=== PATIENT | female | born 1945 | race Caucasian/White ===

== ENCOUNTER 2018-08-28 11:04 | Inpatient (IN) | payer MEDICARE, BC ==
[~2018-08-28] VITALS: Ht 165.1 cm; Wt 94.9 kg
[2018-08-28] MEDS ORDERED: LACTATED RINGERS 1,000 ML IV SCH (12:55)
[2018-08-28] MEDS ORDERED: OXYC-302 PO (12:55)
[2018-08-28] MEDS ORDERED: MELO15TA24 PO (12:55)
[2018-08-28] MEDS ORDERED: LOSA25TA25 PO (12:55)
[2018-08-28] MEDS ORDERED: LEVO137T3 PO (12:55)
[2018-08-28] MEDS ORDERED: AMLO-150 PO (12:55)
[2018-08-28] MEDS ORDERED: ATOR20TA37 PO (12:55)
[2018-08-28 12:56] VITALS: BP 128/66
[2018-08-28 13:48] LABS: BASOPHILS # (AUTO) 0.04 x10^3/uL (0-0.1); BASOPHILS % (AUTO) 0 % (0-1); EOSINOPHILS # (AUTO) 0.04 x10^3/uL (0-0.4); EOSINOPHILS % (AUTO) 0 % (1-7); LYMPHOCYTES # (AUTO) 1.58 x10^3/uL (1-3.4); LYMPHOCYTES % (AUTO) 14 % (22-44); MD NO; MEAN CORPUSCULAR HEMOGLOBIN 29.2 pg (27.0-34.8); MEAN CORPUSCULAR HGB CONC 31.7 g/dL (32.4-35.8); MEAN CORPUSCULAR VOLUME 92.1 fL (80-100); MEAN PLATELET VOLUME 7.9 fL (7.4-10.4); MONOCYTES # (AUTO) 0.91 x10^3/uL (0.2-0.8); MONOCYTES % (AUTO) 8 % (2-9); NEUTROPHILS # (AUTO) 8.91 x10^3/uL (1.8-6.8); NEUTROPHILS % (AUTO) 78 % (42-75); PLATELET COUNT 313 x10^3/uL (130-400); RED BLOOD COUNT 5.26 x10^6/uL (3.82-5.3); RED CELL DISTRIBUTION WIDTH 17.3 % (9.6-15.2)
[2018-08-28 13:54] LABS: INTERNATIONAL NORMALIZED RATIO 1.03 (0.93-1.1); PROTHROMBIN TIME 10.8 Seconds (9.6-11.5)
[2018-08-28 13:55] LABS: ALANINE AMINOTRANSFERASE 12 U/L (12-78); ALBUMIN 3.3 g/dL (3.4-5.0); ANION GAP 12 mmol/L (5-15); CALCIUM 9.7 mg/dL (8.5-10.1); CHLORIDE 101 mmol/L (98-107); CREATININE 0.98 mg/dL (0.55-1.02)
[2018-08-28 13:57] LABS: ALKALINE PHOSPHATASE 126 U/L (45-117); BILIRUBIN,TOTAL 0.7 mg/dL (0.2-1.0)
[2018-08-28] MEDS ORDERED: PLEASE ENTER ALLERGIES MC SCH (14:00)
[2018-08-28] MEDS ORDERED: OXYcodone/APAP 5/325MG TABLET PO ONE ×2 (14:00→16:00)
[2018-08-28] MEDS ORDERED: ONDANSETRON 2MG/ML, 2ML IV PRN ×2 (16:30→21:00)
[2018-08-28] MEDS ORDERED: MORPHINE SULFATE 4 MG/ML, 1ML IV PRN (16:30)
[2018-08-28] MEDS ORDERED: OXYcodone/APAP 5/325MG TABLET PO PRN (16:30)
[2018-08-28] MEDS ORDERED: NS + 20MEQ KCL 1,000 ML IV SCH (17:00)
[2018-08-28] MEDS ORDERED: FENTANYL PF 250 MCG/5ML ONE (19:54)
[2018-08-28] MEDS ORDERED: NEOSTIGMINE 1 MG/ML, 10ML ONE (20:35)
[2018-08-28] MEDS ORDERED: PROPOFOL 10 MG/ML, 20ML ONE (20:35)
[2018-08-28] MEDS ORDERED: GLYCOPYRROLATE 0.2MG/1ML, 5ML ONE (20:35)
[2018-08-28] MEDS ORDERED: CEFAZOLIN 1,000 MG ONE (20:35)
[2018-08-28] MEDS ORDERED: DEXAMETHASONE 4 MG/ML, 1ML ONE (20:35)
[2018-08-28] MEDS ORDERED: ONDANSETRON 2MG/ML, 2ML ONE (20:35)
[2018-08-28] MEDS ORDERED: ROCURONIUM 10MG/ML,5ML ONE (20:35)
[2018-08-28] MEDS ORDERED: SUCCINYLCHOLINE 20 MG/ML, 10ML ONE (20:35)
[2018-08-28] MEDS ORDERED: EPINEPHRINE 1 MG/ML, 1ML ONE (20:59)
[2018-08-28] MEDS ORDERED: BUPIVACAINE/PF 0.25% ONE (20:59)
[2018-08-28] MEDS ORDERED: hydrALAzine 20 MG/ML, 1ML IV PRN (21:00)
[2018-08-28] MEDS ORDERED: PROMETHAZINE 25 MG/ML, 1ML IV PRN (21:00)
[2018-08-28] MEDS ORDERED: ACETAMINOPHEN 325 MG TABLET PO PRN (21:00)
[2018-08-28] MEDS ORDERED: ATORVASTATIN 20 MG TABLET PO SCH (21:00)
[2018-08-28] MEDS ORDERED: FENTANYL PF 100 MCG/2ML IV PRN (21:00)
[2018-08-28] MEDS ORDERED: ONDANSETRON ODT 8 MG PO PRN (21:00)
[2018-08-28] MEDS ORDERED: LABETALOL 5MG/ML, 20ML IV PRN (21:00)
[2018-08-28] MEDS ORDERED: HYDROmorphone 2 MG/ML, 1ML IVPush PRN (21:00)
[2018-08-28] MEDS ORDERED: OXYcodone 5 MG/5 ML ORAL.SOL UDC PO PRN (21:00)
[2018-08-28] MEDS ORDERED: FENTANYL PF 100 MCG/2ML ONE (21:16)
[2018-08-28] MEDS ORDERED: OXYcodone 5 MG/5 ML ORAL.SOL UDC ONE (21:16)
[2018-08-28] MEDS ORDERED: HYDROmorphone 2 MG/ML, 1ML ONE (21:16)
[2018-08-28] MEDS ORDERED: ONDANSETRON ODT 4 MG PO PRN (21:30)
[2018-08-28] MEDS ORDERED: KETOROLAC 30 MG/1 ML IVPush PRN (21:30)
[2018-08-28 22:33] VITALS: BP 100/53
[2018-08-28] MEDS ORDERED: D5%-0.45NACL+KCL 20MEQ 1,000 ML IV SCH (23:00)
[2018-08-29 00:03] VITALS: BP 104/65
[2018-08-29 00:31] VITALS: BP 101/59
[2018-08-29] MEDS: OXYcodone/APAP 5/325MG TABLET PO PRN ×3 (00:52→11:05)
[2018-08-29] MEDS ORDERED: LEVOTHYROXINE 137 MCG TABLET PO SCH (06:00)
[2018-08-29 06:55] VITALS: BP 98/60
[2018-08-29] MEDS ORDERED: LOSARTAN 25MG TABLET PO SCH (09:00)
[2018-08-29] MEDS ORDERED: AMLODIPINE 5 MG TABLET PO SCH (09:00)
[2018-08-29 09:57] LABS: MEAN CORPUSCULAR HEMOGLOBIN 29.2 pg (27.0-34.8); MEAN CORPUSCULAR HGB CONC 31.2 g/dL (32.4-35.8); MEAN CORPUSCULAR VOLUME 93.7 fL (80-100); PLATELET COUNT 284 x10^3/uL (130-400); RED BLOOD COUNT 4.74 x10^6/uL (3.82-5.3); RED CELL DISTRIBUTION WIDTH 16.9 % (9.6-15.2)
[2018-08-29 10:05] LABS: ANION GAP 10 mmol/L (5-15); CALCIUM 8.2 mg/dL (8.5-10.1); CHLORIDE 103 mmol/L (98-107)
[2018-08-29 10:08] LABS: CREATININE 0.75 mg/dL (0.55-1.02)
[2018-08-29 10:24] LABS: BASOPHILS # (AUTO) 0.04 x10^3/uL (0-0.1); BASOPHILS % (AUTO) 0 % (0-1); EOSINOPHILS % (AUTO) 0 % (1-7); LYMPHOCYTES # (AUTO) 1.24 x10^3/uL (1-3.4); LYMPHOCYTES % (AUTO) 7 % (22-44); MD SCAN; MONOCYTES # (AUTO) 0.63 x10^3/uL (0.2-0.8); MONOCYTES % (AUTO) 4 % (2-9); NEUTROPHILS # (AUTO) 16.19 x10^3/uL (1.8-6.8); NEUTROPHILS % (AUTO) 89 % (42-75)
[2018-08-29 12:25] VITALS: BP 92/56
[2018-08-29] MEDS ORDERED: D5%-0.45NACL+KCL 20MEQ 1,000 ML IV SCH (23:00)
== END 2018-08-29 15:30 | disposition home or self-care (01) | DRG 354 ==
LOC: 3NW 11:04 → ORIP 13:32 → 3NW 15:57 → 4WST 08-29 00:32 → DCLOUNGE 08-29 15:22
PROVIDERS: ADMIT Specialist; ATTEND Specialist
PROC: 0WQF0ZZ Repair Abdominal Wall, Open Approach (ICD-10-PCS; principal; 2018-08-28 13:00)
DX: K43.0 Incisional hernia with obstruction, without gangrene (principal); C56.9 Malignant neoplasm of unspecified ovary; C79.89 Secondary malignant neoplasm of other specified sites; I82.91 Chronic embolism and thrombosis of unspecified vein; K66.0 Peritoneal adhesions (postprocedural) (postinfection); I10 Essential (primary) hypertension; E78.5 Hyperlipidemia, unspecified; K21.9 Gastro-esophageal reflux disease without esophagitis; C50.919 Malignant neoplasm of unspecified site of unspecified female breast; N81.10 Cystocele, unspecified; Z79.899 Other long term (current) drug therapy; Z80.8 Family history of malignant neoplasm of other organs or systems; Z90.11 Acquired absence of right breast and nipple; Z79.01 Long term (current) use of anticoagulants; Z92.21 Personal history of antineoplastic chemotherapy; Z00.6 Encounter for examination for normal comparison and control in clinical research program
CPT/HCPCS: 36415; 71045; 80048; 80053; 85025; 85610; 85730; 86850; 86900; 86923; 88302; 93005; G0378; J0171; J0690; J1100; J1170; J2405; J2704; J2710; J3010; J3490; J0330; J3480; J7120